=== PATIENT | male | born 1955 | race Two or more races ===

== ENCOUNTER 2016-07-19 07:36 | Emergency (ER) | payer MEDICAID ==
[~2016-07-19] VITALS: Ht 175.3 cm; Wt 113.4 kg
[2016-07-19 07:52] VITALS: BP 166/103
[2016-07-19] MEDS ORDERED: HYDROcodone-ACET 10/325MG TAB PO ONE (09:15)
[2016-07-19] MEDS ORDERED: LIDOCAINE 2%HCL (LOCAL ANESTH.) INJ 20ML MDV ONE ×2 (09:32→11:22)
[2016-07-19] MEDS ORDERED: cefTRIAXone SOD 1,000 MG VL IM ONE (10:15)
[2016-07-19] MEDS ORDERED: TETANUS-DIPTH-ACEL PERTUSSIS 0.5ML SYRG IM ONE (10:15)
[2016-07-19] MEDS ORDERED: NEOMYCIN-BACITRACIN-POLYM UNITDOSE PKG TOP OINT TOP ONE (10:28)
[2016-07-19] MEDS ORDERED: HYDROmorphone HCL 2 MG/ML VL ONE ×2 (11:10→14:52)
[2016-07-19] MEDS ORDERED: PROMETHAZINE HCL 25 MG/ML 1ML ONE (11:10)
[2016-07-19] MEDS ORDERED: ONDANSETRON HCL 4 MG/2 ML VIAL ONE (14:52)
== END 2016-07-19 10:47 | disposition home or self-care (01) ==
LOC: ER 07:36
DX: S60.552A Superficial foreign body of left hand, initial encounter (principal); W45.8XXA Other foreign body or object entering through skin, initial encounter; Y93.89 Activity, other specified; Y99.8 Other external cause status; Y92.89 Other specified places as the place of occurrence of the external cause
CPT/HCPCS: 10120; 73120; 73130; 90471; 90715; 96372; 99284; J0696; J1170; J2405; J2550; J7040

== ENCOUNTER 2018-02-18 15:07 | Emergency (ER) | payer MEDICAID ==
[~2018-02-18] VITALS: Ht 177.8 cm; Wt 113.4 kg
[2018-02-18 15:14] VITALS: BP 129/83
[2018-02-18] MEDS ORDERED: SODIUM CHLORIDE 0.9% 1,000 ML IV ONE (15:14)
[2018-02-18] MEDS ORDERED: TETANUS-DIPTH-ACEL PERTUSSIS 0.5ML SYRG IM ONE (15:30)
== END 2018-02-18 16:26 | disposition home or self-care (01) ==
LOC: EDBD 15:07 → ER 15:15
DX: S01.01XA Laceration without foreign body of scalp, initial encounter (principal); S06.9X9A Unspecified intracranial injury with loss of consciousness of unspecified duration, initial encounter; F10.129 Alcohol abuse with intoxication, unspecified; I10 Essential (primary) hypertension; I25.2 Old myocardial infarction; Z86.73 Personal history of transient ischemic attack (TIA), and cerebral infarction without residual deficits; Z98.61 Coronary angioplasty status; Y08.89XA Assault by other specified means, initial encounter; W18.39XA Other fall on same level, initial encounter; Y93.89 Activity, other specified; Y99.8 Other external cause status; Y92.89 Other specified places as the place of occurrence of the external cause
CPT/HCPCS: 12002; 36415; 70450; 72125; 80320; 90471; 90715; 94761

== ENCOUNTER → 2018-12-17 | Emergency (ER) | payer MEDICAID ==
[~2018-12-17] VITALS: Ht 175.3 cm; Wt 118.8 kg
== END | disposition home or self-care (01) ==
LOC: ER 09:08
DX: S39.011A Strain of muscle, fascia and tendon of abdomen, initial encounter (principal); K40.90 Unilateral inguinal hernia, without obstruction or gangrene, not specified as recurrent; I25.10 Atherosclerotic heart disease of native coronary artery without angina pectoris; I10 Essential (primary) hypertension; Z86.73 Personal history of transient ischemic attack (TIA), and cerebral infarction without residual deficits; X58.XXXA Exposure to other specified factors, initial encounter; Y93.89 Activity, other specified; Y92.89 Other specified places as the place of occurrence of the external cause; Y99.8 Other external cause status
CPT/HCPCS: 74176

== ENCOUNTER 2019-11-07 21:34 | Inpatient (IN) | payer MEDICAID, OTHER ==
[~2019-11-07] VITALS: Ht 175.3 cm; Wt 128.9 kg
[2019-11-07 21:59] LABS: Basophils # (auto) 0.1 10 ^3/uL (0-0.2); Basophils % (auto) 0.6 % (0.0-2.0); Eosinophils # (auto) 0.1 10 ^3/uL (0-0.8); Eosinophils % (auto) 0.3 % (0.0-7.0); Hematocrit 44.6 % (41.0-53.0); Hemoglobin 15.1 g/dL (13.5-17.5); Lymphocytes # (auto) 1.4 10 ^3/uL (0.4-5.4); Lymphocytes % (auto) 8.9 % (10.0-50.0); Mean Corpuscular Hemoglobin 32.6 pg (28.0-32.0); Mean Corpuscular Hgb Conc. 33.8 g/dL (32.0-36.0); Mean Corpuscular Volume 96.6 fL (80.0-100.0); Monocytes # (auto) 0.5 10 ^3/uL (0-1.3); Monocytes % (auto) 3.3 % (0.0-12.0); Neutrophils # (auto) 14.1 10 ^3/uL (1.6-8.6); Neutrophils % (auto) 86.9 % (37.0-80.0); Platelet Count (auto) 154 10^3/uL (140-450); Red Blood Cells 4.62 10^6/uL (4.5-5.90); Red Cell Distribution Width 14.2 % (11.8-14.3); White Blood Cell 16.2 10^3/uL (4.4-10.8)
[2019-11-07 22:10] LABS: INR 1.06 (0.9-1.15); Partial Thromboplastin Time 22.5 sec (23.0-31.2)
[2019-11-07 22:14] LABS: Alanine Aminotransferase 50 U/L (16-61); Albumin 3.6 g/dL (3.4-5.0); Anion Gap 9 (5-15); BUN/Creatinine Ratio 9.5; Blood Urea Nitrogen 9 mg/dL (7-18); Carbon Dioxide 25 mmol/L (21-32); Chloride 105 mmol/L (98-107); GFR African American 103 mL/min; GFR Non-African American 85 mL/min; Glucose 132 mg/dL (74-106); Potassium 3.7 mmol/L (3.5-5.1); Sodium 139 mmol/L (136-145)
[2019-11-07] MEDS ORDERED: VANCOMYCIN 1GM/250ML 250 ML IV ONE (22:15)
[2019-11-07] MEDS ORDERED: PIPERACILLIN-TAZOB 3.375GM 100 ML IV ONE (22:15)
[2019-11-07 22:19] LABS: Alkaline Phosphatase 188 U/L (45-117); Aspartate Aminotransferase 57 U/L (15-37); Bilirubin, Total 0.6 mg/dL (0.2-1.0)
[2019-11-07] MEDS ORDERED: SODIUM CHLORIDE 0.9% 2,700 ML IV ONE (22:30)
[2019-11-07 22:48] LABS: Lactic Acid w/Reflex 2.3 mmol/L (0.4-2.0)
[2019-11-08 00:14] LABS: Urine Bacteria NONE SEEN /hpf (None Seen); Urine Blood Negative /uL (Negative); Urine Specific Gravity 1.018 (1.001-1.035); Urine WBC 88 /hpf (0 - 3)
[2019-11-08] MEDS ORDERED: ACETAMINOPHEN 325 MG TAB PO ONE (01:45)
[2019-11-08 03:20] LABS: Lactic Acid w/Reflex 2.8 mmol/L (0.4-2.0)
[2019-11-08] MEDS ORDERED: ONDANSETRON HCL 4 MG/2 ML VIAL IV PRN (04:30)
[2019-11-08] MEDS ORDERED: ACETAMINOPHEN 325 MG TAB PO PRN (04:30)
--- NOTE | 2019-11-08 06:05 | NUR ---
Telemetry admit from SAURABH RAMACHANDRAN SR,EDWARD admitted to Telemetry unit after SBAR received. Patient oriented to ALIDA MARTINEZ RN primary RN, unit, room, bed, and unit policies regarding patient care and visiting hours. Patient now on continuous telemetry monitoring, tele box # 6 and telemetry reading on arrival to unit is Sinus Tach at 108BPM. Patient placed on bedside oxygen, weighed by bedscale and encouraged to call if they need something. All questions and concerns addressed, patient verbalized understanding.
[2019-11-08] MEDS: SODIUM CHLORIDE 0.9% 1,000 ML IV ONE ×2 (06:14→09:43)
[2019-11-08 06:31] VITALS: BP 127/78
[2019-11-08 07:17] LABS: Basophils # (auto) 0 10 ^3/uL (0-0.2); Basophils % (auto) 0.1 % (0.0-2.0); Eosinophils # (auto) 0 10 ^3/uL (0-0.8); Hematocrit 40.6 % (41.0-53.0); Hemoglobin 13.5 g/dL (13.5-17.5); Lymphocytes # (auto) 1.4 10 ^3/uL (0.4-5.4); Mean Corpuscular Hemoglobin 32.5 pg (28.0-32.0); Mean Corpuscular Hgb Conc. 33.3 g/dL (32.0-36.0); Mean Corpuscular Volume 97.7 fL (80.0-100.0); Monocytes # (auto) 2.6 10 ^3/uL (0-1.3); Monocytes % (auto) 9.2 % (0.0-12.0); Neutrophils # (auto) 24.2 10 ^3/uL (1.6-8.6); Neutrophils % (auto) 85.7 % (37.0-80.0); Platelet Count (auto) 124 10^3/uL (140-450); Red Blood Cells 4.15 10^6/uL (4.5-5.90); Red Cell Distribution Width 14.6 % (11.8-14.3); White Blood Cell 28.3 10^3/uL (4.4-10.8)
[2019-11-08 07:44] LABS: Albumin 3.2 g/dL (3.4-5.0); Potassium 3.9 mmol/L (3.5-5.1)
[2019-11-08 07:47] LABS: BUN/Creatinine Ratio 8.5; Bilirubin, Total 1.9 mg/dL (0.2-1.0); Phosphorus 2.3 mg/dL (2.5-4.90); Total Protein 6.7 g/dL (6.4-8.2)
[2019-11-08 09:00] VITALS: BP 138/71
[2019-11-08] MEDS: ENOXAPARIN SOD 40 MG/0.4 ML SYRINGE SC SCH (09:43)
[2019-11-08] MEDS ORDERED: cefTRIAXone 1GM/50ML D5W 50 ML IV SCH (10:00)
[2019-11-08] MEDS ORDERED: HYDROcodone-ACET 10/325MG TAB PO PRN (10:45)
[2019-11-08] MEDS ORDERED: DEXTROSE (50%) 50ML SYRG IV PRN (10:45)
[2019-11-08] MEDS ORDERED: IPRATROPIUM BROM 0.5 MG/2.5ML INH SOL NEB PRN (10:45)
[2019-11-08] MEDS ORDERED: ALBUTEROL SULF 2.5 MG/0.5ML(0.5%) NEB SOLN NEB PRN (10:45)
[2019-11-08] MEDS ORDERED: LISI-648 PO (10:55)
[2019-11-08] MEDS ORDERED: METF-869 PO (10:55)
[2019-11-08] MEDS ORDERED: ASPI-231 (10:55)
[2019-11-08] MEDS ORDERED: HYDR-4798 (10:55)
[2019-11-08] MEDS ORDERED: ATOR20TA50 PO (10:55)
[2019-11-08] MEDS ORDERED: CARV6.2551 PO (10:55)
[2019-11-08] MEDS ORDERED: ISO60SRT PO (10:55)
[2019-11-08] MEDS ORDERED: OMEP-260 PO (10:55)
[2019-11-08] MEDS ORDERED: MELO1TAB56 PO (10:55)
[2019-11-08] MEDS ORDERED: ALBU108A5 INH (10:55)
[2019-11-08] MEDS: SODIUM CHLORIDE 0.9% 1,000 ML IV SCH ×2 (11:14→18:20)
[2019-11-08] MEDS: ACCU-CHEK COMFORT CURVE STRIP VI SCH ×3 (11:14→22:04)
[2019-11-08] MEDS: InsuLIN REG 1unit/0.01ml Soln (100units/ml) SC SCH ×3 (11:14→22:00)
[2019-11-08] MEDS ORDERED: ISOSORBIDE MONONITRATE ER 60 MG TAB PO ONE (11:30)
[2019-11-08] MEDS ORDERED: LISINOPRIL 10 MG TAB PO ONE (11:30)
[2019-11-08 13:00] VITALS: BP 140/72
--- NOTE | 2019-11-08 13:16 | NUR ---
Transfer to MS/Tele Patient transferred to MS/Tele at this time. MADIE MURILLO,JASON admitted to Telemetry unit after report, MARY Worrell, received. Patient oriented to VALERIA SKY RN primary RN, unit, room, bed, and unit policies regarding patient care and visiting hours. Patient now on continuous telemetry monitoring, tele box #[id number]. Patient placed on bedside oxygen, weighed by bedscale and encouraged to call if they need something. All questions and concerns addressed, patient verbalized understanding.
--- NOTE | 2019-11-08 15:47 | NUR ---
Call to Dr. Mcdaniels Patient has nausea, increasing pain in the abdomen and increased axillary temp of 100.4. Performed cooling measures and called to notify doctor.
[2019-11-08 15:52] VITALS: BP 140/72
[2019-11-08] MEDS ORDERED: VANCOMYCIN PER PHARMACY 0 MG IV SCH (16:00)
--- NOTE | 2019-11-08 16:00 | NUR ---
Call from Arslan Mcdaniels notified of patients temp and pain, new orders received.
[2019-11-08] MEDS: ACETAMINOPHEN 325 MG TAB PO PRN (16:11)
--- NOTE | 2019-11-08 16:25 | NUR ---
CT Scan Patient taken to CT scan at this time.
[2019-11-08] MEDS ORDERED: VANCOMYCIN 1GM/250ML 250 ML IV ONE (16:30)
[2019-11-08 17:00] VITALS: BP 115/66
[2019-11-08] MEDS: MEROPENEM 1GM IVPB 100 ML IV SCH (18:07)
--- NOTE | 2019-11-08 19:16 | NUR ---
Closing Shift Note Patient resting in bed. No distress noted. Report given. Will endorse care to the beef grader RN.
[2019-11-08 22:00] VITALS: BP 103/60
[2019-11-08] MEDS: CARVEDILOL 3.125 MG TAB PO SCH (22:03)
[2019-11-08] MEDS: ATORVASTATIN 20 MG TAB PO SCH (22:04)
[2019-11-09] MEDS: VANCOMYCIN 1GM/250ML 250 ML IV SCH ×4 (00:16→21:04)
[2019-11-09] MEDS: MEROPENEM 1GM IVPB 100 ML IV SCH ×3 (01:39→18:34)
[2019-11-09 04:48] VITALS: BP 95/54
[2019-11-09] MEDS: SODIUM CHLORIDE 0.9% 1,000 ML IV SCH ×3 (05:44→18:43)
[2019-11-09] MEDS: InsuLIN REG 1unit/0.01ml Soln (100units/ml) SC SCH ×4 (06:05→21:51)
[2019-11-09] MEDS: ACCU-CHEK COMFORT CURVE STRIP VI SCH ×4 (06:06→21:52)
[2019-11-09 06:42] LABS: Basophils # (auto) 0.1 10 ^3/uL (0-0.2); Basophils % (auto) 0.4 % (0.0-2.0); Eosinophils # (auto) 0.1 10 ^3/uL (0-0.8); Eosinophils % (auto) 0.6 % (0.0-7.0); Hematocrit 36.7 % (41.0-53.0); Lymphocytes # (auto) 1.3 10 ^3/uL (0.4-5.4); Lymphocytes % (auto) 8.6 % (10.0-50.0); Mean Corpuscular Hemoglobin 32.6 pg (28.0-32.0); Mean Corpuscular Hgb Conc. 32.7 g/dL (32.0-36.0); Mean Corpuscular Volume 99.5 fL (80.0-100.0); Monocytes # (auto) 1.5 10 ^3/uL (0-1.3); Monocytes % (auto) 10.1 % (0.0-12.0); Neutrophils % (auto) 80.3 % (37.0-80.0); Nucleated Red Blood Cells % 0.1 %; Platelet Count (auto) 105 10^3/uL (140-450); Red Blood Cells 3.69 10^6/uL (4.5-5.90); Red Cell Distribution Width 14.5 % (11.8-14.3); White Blood Cell 14.9 10^3/uL (4.4-10.8)
[2019-11-09 06:58] LABS: Albumin 2.9 g/dL (3.4-5.0); Calcium 8.1 mg/dL (8.5-10.1); Potassium 3.9 mmol/L (3.5-5.1)
[2019-11-09 07:02] LABS: BUN/Creatinine Ratio 14.4; Bilirubin, Total 1.5 mg/dL (0.2-1.0); Total Protein 6.3 g/dL (6.4-8.2)
--- NOTE | 2019-11-09 07:10 | NUR ---
closing note pt resting in semi fowlers with HOB at 30 degrees. respiration even and nonlabored on 5Lnc. no s/s of pain or distress. endorsed care to day shift MARY Riley.
--- NOTE | 2019-11-09 07:30 | NUR ---
Opening Shift Note Assumed care of patient, awake and alert. Respirations are even and non labored. Patient stated "I don't want to wear this oxygen anymore." Oxygen saturation was sufficient for room air, patient education given about shortness of breath and how to apply nasal cannula if needed. No S/S of distress/SOB or pain. Bed is in lowest and locked position with side rails up x 2 and call light within reach. Instructed on POC and to call for assist PRN, will continue to monitor for changes Q1hr and PRN.
--- NOTE | 2019-11-09 07:30 | NUR ---
Respiratory note: ASSESSED PT FOR PRN MEDNEB TX. HR 85, RR 18, SPO2 93% ON ROOM AIR. BREATH SOUNDS CLEAR/DIM T/O. PT DENIES SOB, NO S/S OF DISTRESS NOTED. MEDNEB TX NOT INDICATED AT THIS TIME. PT AWARE TO CALL FOR RT IF NEEDED.
[2019-11-09 08:48] VITALS: BP 113/69
--- NOTE | 2019-11-09 09:00 | NUR ---
IV insertion IV access obtained, via clean sterile technique by inserting 22 gauge catheter at right AC. IV secured properly. No trauma to site. Patient tolerated well.
--- NOTE | 2019-11-09 09:43 | NUR ---
Call to Micro Received in report that the patient was positive for gram positive cocci in clusters. Micro status wasn't reflecting accordingly. Called micro for confirmation.
[2019-11-09] MEDS ORDERED: ISOSORBIDE MONONITRATE ER 60 MG TAB PO SCH (10:00)
[2019-11-09] MEDS ORDERED: LISINOPRIL 10 MG TAB PO SCH (10:00)
[2019-11-09] MEDS ORDERED: ASPirin 81 mg TAB PO SCH (10:00)
[2019-11-09] MEDS: ENOXAPARIN SOD 40 MG/0.4 ML SYRINGE SC SCH (10:00)
--- NOTE | 2019-11-09 10:02 | NUR ---
Call to Dr. Jiang Called to notify of micro report. Left message for further instruction.
[2019-11-09] MEDS: CARVEDILOL 3.125 MG TAB PO SCH ×2 (11:07→21:51)
[2019-11-09 13:00] VITALS: BP 116/58
--- NOTE | 2019-11-09 13:26 | NUR ---
Call to Pharmacy Call to pharmacy at this time, spoke with pharmacist. Pharmacists called earlier but no changes were made to vancomycin schedule of trough. Pharmacists aware that patient did not have IV access until 0900. Pharmacists states they are aware and no changes will be made. Will administer antibiotics as scheduled.
[2019-11-09 16:20] VITALS: BP 96/52
[2019-11-09] MEDS: ACETAMINOPHEN 325 MG TAB PO PRN (18:42)
--- NOTE | 2019-11-09 18:43 | NUR ---
Pain reported Patient reported 6/10 pain. Patient requested acetaminophen, medicated per request.
--- NOTE | 2019-11-09 19:45 | NUR ---
ASSUMED CARE, PT. AWAKE, NO C/O PAIN, NO SOB.
--- NOTE | 2019-11-09 20:00 | NUR ---
PT ASSESSED, PRN TX NOT INDICATED
[2019-11-09] MEDS: ATORVASTATIN 20 MG TAB PO SCH (21:51)
[2019-11-09 22:00] VITALS: BP 113/63
--- NOTE | 2019-11-10 00:30 | NUR ---
called up. ct, they will do ct at 0800, npo instructed to pt.
[2019-11-10] MEDS: MEROPENEM 1GM IVPB 100 ML IV SCH (01:43)
[2019-11-10] MEDS: SODIUM CHLORIDE 0.9% 1,000 ML IV SCH (02:45)
[2019-11-10] MEDS: VANCOMYCIN 1GM/250ML 250 ML IV SCH (03:48)
[2019-11-10 05:00] VITALS: BP 128/79
[2019-11-10] MEDS: InsuLIN REG 1unit/0.01ml Soln (100units/ml) SC SCH (06:13)
[2019-11-10] MEDS: ACCU-CHEK COMFORT CURVE STRIP VI SCH (06:14)
[2019-11-10 07:19] LABS: Albumin 2.8 g/dL (3.4-5.0); Calcium 8.4 mg/dL (8.5-10.1); Potassium 3.7 mmol/L (3.5-5.1)
[2019-11-10 07:23] LABS: BUN/Creatinine Ratio 16.2; Total Protein 6.4 g/dL (6.4-8.2)
[2019-11-10 07:35] LABS: Basophils # (auto) 0.1 10 ^3/uL (0-0.2); Basophils % (auto) 0.9 % (0.0-2.0); Eosinophils # (auto) 0.1 10 ^3/uL (0-0.8); Eosinophils % (auto) 1.2 % (0.0-7.0); Hematocrit 38.1 % (41.0-53.0); Hemoglobin 12.7 g/dL (13.5-17.5); Lymphocytes # (auto) 0.7 10 ^3/uL (0.4-5.4); Lymphocytes % (auto) 9.6 % (10.0-50.0); Mean Corpuscular Hgb Conc. 33.4 g/dL (32.0-36.0); Mean Corpuscular Volume 98.8 fL (80.0-100.0); Monocytes # (auto) 0.7 10 ^3/uL (0-1.3); Monocytes % (auto) 9.5 % (0.0-12.0); Neutrophils # (auto) 5.7 10 ^3/uL (1.6-8.6); Neutrophils % (auto) 78.8 % (37.0-80.0); Platelet Count (auto) 99 10^3/uL (140-450); Red Blood Cells 3.86 10^6/uL (4.5-5.90); Red Cell Distribution Width 14.3 % (11.8-14.3); White Blood Cell 7.2 10^3/uL (4.4-10.8)
[2019-11-10 08:30] VITALS: BP 142/79
--- NOTE | 2019-11-10 08:30 | NUR ---
Patient resting comfortably in bed. States he wants to leave AMA because he doesn't know what's going on. Explained to patient that CT angio is scheduled for today; possible discharge pending result of test. Also stressed the importance of antibiotic therapy.
[2019-11-10 09:00] VITALS: BP 142/79
--- NOTE | 2019-11-10 09:00 | NUR ---
Assessment Regarding social service consult for alcohol abuse. Patient refused resources. Patient is a 64-year-old male who is alert and oriented. Prior to admission patient lived home alone and functioned independently. Patient has no needs for DME at this time. Patient states he can care for his own ADL's. Patient verbalize understanding d/c day.
--- NOTE | 2019-11-10 10:10 | NUR ---
Paged Dr. Mcdaniels and left message that patient states he will wait until 11 am to have the [address] angio done.
--- NOTE | 2019-11-10 10:35 | NUR ---
Patient left AMA. Peripheral IV removed intact with no active bleeding; site covered with gauze. Patient states that he will follow-up with his primary physician. Reiterated the importance of continuing antibiotic therapy to fight infection. Patient verbalized understanding.
== END 2019-11-10 10:35 | disposition left against medical advice (07) | DRG 720 ==
LOC: EDBD 21:34 → ER 21:37 → EDUNIT# 21:37 → TELE 21:38 → TELE-EAST 11-08 06:32 → TELE-CENTR 11-08 13:28
PROVIDERS: ADMIT Internal Medicine; ATTEND Internal Medicine
DX: A41.9 Sepsis, unspecified organism (principal); E66.01 Morbid (severe) obesity due to excess calories; I11.0 Hypertensive heart disease with heart failure; I50.9 Heart failure, unspecified; K70.30 Alcoholic cirrhosis of liver without ascites; Z20.828 Contact with and (suspected) exposure to other viral communicable diseases; M25.462 Effusion, left knee; M25.461 Effusion, right knee; N39.0 Urinary tract infection, site not specified; M17.0 Bilateral primary osteoarthritis of knee; F41.9 Anxiety disorder, unspecified; J44.9 Chronic obstructive pulmonary disease, unspecified; E78.5 Hyperlipidemia, unspecified; E11.9 Type 2 diabetes mellitus without complications; Z53.29 Procedure and treatment not carried out because of patient's decision for other reasons; F10.10 Alcohol abuse, uncomplicated; Z87.11 Personal history of peptic ulcer disease; Z68.41 Body mass index [BMI] 40.0-44.9, adult; Z87.891 Personal history of nicotine dependence
CPT/HCPCS: 36415; 36600; 71045; 73560; 73700; 74176; 80053; 80202; 81001; 82805; 82962; 83605; 83735; 83880; 84100; 84484; 85025; 85379; 85610; 85730; 86850; 86900; 86901; 87040; 87077; 87086; 87088; 87186; 87426; 93005; 93970; 96365; 96366; 96367; 99291; G0378; J0696; J2185; J2405; J2543

== ENCOUNTER 2020-06-14 20:28 | Emergency (ER) | payer MEDICAID ==
[~2020-06-14] VITALS: Ht 180.3 cm; Wt 113.4 kg
[~2020-06-14 20:28] MED LIST: ALBU108A5 INH; ASPI1TAB20; ATOR20TA50 PO; CARV6.2551 PO; HYDR-4798; ISO60SRT PO; LISI-716 PO; MELO1TAB56 PO; METF-869 PO; OMEP-260 PO
[2020-06-14 21:56] LABS: Basophils # (auto) 0 10 ^3/uL (0-0.2); Basophils % (auto) 0.4 % (0.0-2.0); Eosinophils # (auto) 0.1 10 ^3/uL (0-0.8); Eosinophils % (auto) 0.4 % (0.0-7.0); Hemoglobin 15.8 g/dL (13.5-17.5); Lymphocytes # (auto) 1.7 10 ^3/uL (0.4-5.4); Lymphocytes % (auto) 14.9 % (10.0-50.0); Mean Corpuscular Hemoglobin 33.1 pg (28.0-32.0); Mean Corpuscular Hgb Conc. 34.4 g/dL (32.0-36.0); Mean Corpuscular Volume 96.3 fL (80.0-100.0); Monocytes # (auto) 1.1 10 ^3/uL (0-1.3); Monocytes % (auto) 9.6 % (0.0-12.0); Neutrophils # (auto) 8.6 10 ^3/uL (1.6-8.6); Neutrophils % (auto) 74.7 % (37.0-80.0); Nucleated Red Blood Cells % 0.2 %; Red Blood Cells 4.77 10^6/uL (4.5-5.90); Red Cell Distribution Width 15.6 % (11.8-14.3); White Blood Cell 11.6 10^3/uL (4.4-10.8)
[2020-06-14 22:13] LABS: Albumin 3.3 g/dL (3.4-5.0); Anion Gap 9 (5-15); Calcium 8.3 mg/dL (8.5-10.1); Carbon Dioxide 21 mmol/L (21-32); Chloride 110 mmol/L (98-107); Glucose 269 mg/dL (74-106); Magnesium 2.8 mg/dL (1.6-2.6); Potassium 4.4 mmol/L (3.5-5.1); Sodium 140 mmol/L (136-145)
[2020-06-14 22:19] LABS: Alkaline Phosphatase 237 U/L (45-117); Aspartate Aminotransferase 58 U/L (15-37); Bilirubin, Total 0.7 mg/dL (0.2-1.0); GFR African American 109 mL/min; GFR Non-African American 90 mL/min; Total Protein 7.1 g/dL (6.4-8.2)
[2020-06-14 23:04] LABS: Alanine Aminotransferase 96 U/L (16-61)
[2020-06-14 23:06] LABS: Blood Urea Nitrogen 18 mg/dL (7-18)
[2020-06-15] VITALS: BP 156/60
[2020-06-15] MEDS ORDERED: IOHEXOL 350 MG/ML 100ML IJ ONE (00:12)
== END 2020-06-15 00:51 | disposition left against medical advice (07) ==
LOC: EDBD 20:28 → ER 20:31
DX: R07.89 Other chest pain (principal); R55 Syncope and collapse; I10 Essential (primary) hypertension; E11.9 Type 2 diabetes mellitus without complications; E78.5 Hyperlipidemia, unspecified; J45.909 Unspecified asthma, uncomplicated; I25.2 Old myocardial infarction; F41.9 Anxiety disorder, unspecified; I25.10 Atherosclerotic heart disease of native coronary artery without angina pectoris; Z79.84 Long term (current) use of oral hypoglycemic drugs; Z79.82 Long term (current) use of aspirin; Z79.899 Other long term (current) drug therapy; Z87.440 Personal history of urinary (tract) infections; Z87.11 Personal history of peptic ulcer disease; Z98.890 Other specified postprocedural states; Z87.891 Personal history of nicotine dependence; Z20.822 Contact with and (suspected) exposure to COVID-19
CPT/HCPCS: 36415; 71045; 80053; 83735; 83880; 84484; 85025; 85610; 87426; 93005; 99285; Q9967

== ENCOUNTER → 2021-02-16 | Outpatient (CLI) | payer MEDICAID, OTHER ==
[2021-02-16 11:09] LABS: Basophils # (auto) 0.1 10 ^3/uL (0-0.2); Basophils % (auto) 0.8 % (0.0-2.0); Eosinophils # (auto) 0.1 10 ^3/uL (0-0.8); Eosinophils % (auto) 2.1 % (0.0-7.0); Hematocrit 41.7 % (41.0-53.0); Hemoglobin 13.9 g/dL (13.5-17.5); Lymphocytes # (auto) 1.6 10 ^3/uL (0.4-5.4); Lymphocytes % (auto) 23.7 % (10.0-50.0); Mean Corpuscular Hgb Conc. 33.3 g/dL (32.0-36.0); Mean Corpuscular Volume 90.1 fL (80.0-100.0); Monocytes # (auto) 0.7 10 ^3/uL (0-1.3); Monocytes % (auto) 10.6 % (0.0-12.0); Neutrophils # (auto) 4.3 10 ^3/uL (1.6-8.6); Neutrophils % (auto) 62.8 % (37.0-80.0); Nucleated Red Blood Cells % 0.1 %; Red Blood Cells 4.63 10^6/uL (4.5-5.90); Red Cell Distribution Width 16.2 % (11.8-14.3); White Blood Cell 6.8 10^3/uL (4.4-10.8)
[2021-02-16 11:34] LABS: Urine Bacteria NONE SEEN /hpf (None Seen); Urine Blood Negative /uL (Negative); Urine Mucus FEW (None Seen); Urine Specific Gravity 1.029 (1.001-1.035); Urine WBC 1 /hpf (0 - 3)
[2021-02-16 12:01] LABS: Albumin 3.3 g/dL (3.4-5.0); Calcium 9.1 mg/dL (8.5-10.1); Potassium 4.6 mmol/L (3.5-5.1)
[2021-02-16 12:06] LABS: Bilirubin, Total 1.2 mg/dL (0.2-1.0); Total Protein 7.6 g/dL (6.4-8.2)
[2021-02-17 06:37] LABS: Uric Acid 5.6 mg/dL (3.5-7.2)
== END | disposition home or self-care (01) ==
LOC: LAB 10:38
PROVIDERS: ATTEND Internal Medicine
DX: Z00.00 Encounter for general adult medical examination without abnormal findings (principal); E11.9 Type 2 diabetes mellitus without complications; Z12.11 Encounter for screening for malignant neoplasm of colon; E78.5 Hyperlipidemia, unspecified; D64.9 Anemia, unspecified
CPT/HCPCS: 36415; 80053; 80061; 81001; 82043; 82550; 83036; 84153; 84443; 84550; 85025; 85652; 86431

== ENCOUNTER 2021-08-19 00:12 | Inpatient (IN) | payer OTHER, MEDICAID ==
[~2021-08-19] VITALS: Ht 175.3 cm; Wt 129.0 kg
[2021-08-19 02:06] LABS: Basophils # (auto) 0.1 10 ^3/uL (0-0.2); Basophils % (auto) 0.9 % (0.0-2.0); Eosinophils # (auto) 0.2 10 ^3/uL (0-0.8); Eosinophils % (auto) 3.2 % (0.0-7.0); Hematocrit 45.3 % (41.0-53.0); Hemoglobin 15.3 g/dL (13.5-17.5); Lymphocytes # (auto) 2.5 10 ^3/uL (0.4-5.4); Lymphocytes % (auto) 36.1 % (10.0-50.0); Mean Corpuscular Hemoglobin 32.4 pg (28.0-32.0); Mean Corpuscular Hgb Conc. 33.9 g/dL (32.0-36.0); Mean Corpuscular Volume 95.7 fL (80.0-100.0); Monocytes # (auto) 0.8 10 ^3/uL (0-1.3); Neutrophils # (auto) 3.4 10 ^3/uL (1.6-8.6); Neutrophils % (auto) 48.8 % (37.0-80.0); Nucleated Red Blood Cells % 0.1 %; Red Blood Cells 4.73 10^6/uL (4.5-5.90); Red Cell Distribution Width 14.3 % (11.8-14.3); White Blood Cell 6.9 10^3/uL (4.4-10.8)
[2021-08-19 02:25] LABS: Albumin 3.5 g/dL (3.4-5.0); BUN/Creatinine Ratio 12.7; Calcium 8.8 mg/dL (8.5-10.1); Potassium 4.2 mmol/L (3.5-5.1)
[2021-08-19 02:27] LABS: Bilirubin, Total 0.4 mg/dL (0.2-1.0); Total Protein 7.4 g/dL (6.4-8.2)
[2021-08-19] MEDS ORDERED: HYDROcodone-ACET 5/325MG TAB PO PRN (06:30)
[2021-08-19] MEDS ORDERED: DOCUSATE SOD 100 MG CAP PO PRN (06:30)
[2021-08-19] MEDS ORDERED: SODIUM CHLORIDE 0.9% 1,000 ML IV SCH (06:30)
[2021-08-19] MEDS ORDERED: ONDANSETRON HCL 4 MG/2 ML VIAL IV PRN (06:30)
[2021-08-19] MEDS ORDERED: DEXTROSE (50%) 50ML SYRG IV PRN (06:30)
[2021-08-19] MEDS ORDERED: ACETAMINOPHEN 325 MG TAB PO PRN (06:30)
[2021-08-19] MEDS ORDERED: NITROGLYCERIN 0.4 MG SL TAB SL PRN (06:45)
[2021-08-19] MEDS ORDERED: MORPHINE SULFATE INJ 2 MG/ml SYRG IV PRN (06:45)
[2021-08-19] MEDS: InsuLIN REG 1unit/0.01ml Soln (100units/ml) SC SCH ×2 (07:00→11:30)
[2021-08-19] MEDS: ACCU-CHEK COMFORT CURVE STRIP VI SCH ×2 (07:02→11:55)
[2021-08-19 07:15] LABS: Basophils # (auto) 0.1 10 ^3/uL (0-0.2); Basophils % (auto) 1.2 % (0.0-2.0); Eosinophils # (auto) 0.2 10 ^3/uL (0-0.8); Eosinophils % (auto) 3.9 % (0.0-7.0); Hematocrit 46.5 % (41.0-53.0); Hemoglobin 15.3 g/dL (13.5-17.5); Lymphocytes % (auto) 38.7 % (10.0-50.0); Mean Corpuscular Hemoglobin 31.6 pg (28.0-32.0); Mean Corpuscular Hgb Conc. 32.9 g/dL (32.0-36.0); Monocytes # (auto) 0.5 10 ^3/uL (0-1.3); Monocytes % (auto) 9.8 % (0.0-12.0); Neutrophils # (auto) 2.4 10 ^3/uL (1.6-8.6); Neutrophils % (auto) 46.4 % (37.0-80.0); Nucleated Red Blood Cells % 0.1 %; Red Blood Cells 4.84 10^6/uL (4.5-5.90); Red Cell Distribution Width 14.5 % (11.8-14.3); White Blood Cell 5.1 10^3/uL (4.4-10.8)
[2021-08-19 07:37] LABS: Albumin 3.5 g/dL (3.4-5.0); Calcium 8.9 mg/dL (8.5-10.1); Potassium 4.7 mmol/L (3.5-5.1)
[2021-08-19 07:39] LABS: BUN/Creatinine Ratio 12.5
[2021-08-19 07:42] LABS: Bilirubin, Total 0.5 mg/dL (0.2-1.0); Total Protein 7.3 g/dL (6.4-8.2)
[2021-08-19] MEDS ORDERED: ASPirin 81 mg TAB PO SCH (10:00)
[2021-08-19] MEDS ORDERED: FAMOTIDINE (10MG/ML) 2ML VL IV SCH (10:00)
[2021-08-19] MEDS ORDERED: SUCRALFATE 1 GM TAB PO SCH (12:15)
[2021-08-19] MEDS ORDERED: ALUM & MAG HYDROX-SIMETH LIQ(MAALOX) 30 ML PO ONE (12:15)
[2021-08-19] MEDS ORDERED: ALUM & MAG HYDROX-SIMETH LIQ(MAALOX) 30 ML PO PRN (12:15)
[2021-08-19] MEDS ORDERED: SUCR1TAB22 OR (12:16)
[2021-08-19] MEDS ORDERED: PANT40TA2 PO (12:16)
[2021-08-19 12:59] VITALS: BP 130/69
[2021-08-19 13:00] VITALS: BP 144/78
[2021-08-19] MEDS ORDERED: ALBU2SYP3 (13:19)
[2021-08-19] MEDS ORDERED: ATORVASTATIN 20 MG TAB PO SCH (22:00)
[2021-08-19] MEDS ORDERED: InsuLIN REG 1unit/0.01ml Soln (100units/ml) SC SCH (22:00)
[2021-08-20] MEDS ORDERED: PANTOPRAZOLE 40 MG TAB PO SCH (10:00)
[2021-08-20] MEDS ORDERED: ENOXAPARIN SOD 40 MG/0.4 ML SYRINGE SC SCH (10:00)
== END 2021-08-19 14:10 | disposition left against medical advice (07) | DRG 392 ==
LOC: EDBD 00:12 → ER 00:12 → TELE 06:34 → TELE-EAST 09:07
PROVIDERS: ADMIT Nurse Practitioner Family; ATTEND Internal Medicine
DX: K21.9 Gastro-esophageal reflux disease without esophagitis (principal); Z68.41 Body mass index [BMI] 40.0-44.9, adult; E11.65 Type 2 diabetes mellitus with hyperglycemia; E66.01 Morbid (severe) obesity due to excess calories; E78.5 Hyperlipidemia, unspecified; I25.10 Atherosclerotic heart disease of native coronary artery without angina pectoris; I25.2 Old myocardial infarction; I51.7 Cardiomegaly; Z53.29 Procedure and treatment not carried out because of patient's decision for other reasons; J45.909 Unspecified asthma, uncomplicated; D64.9 Anemia, unspecified; F41.9 Anxiety disorder, unspecified; Z20.822 Contact with and (suspected) exposure to COVID-19; M19.90 Unspecified osteoarthritis, unspecified site; Z87.891 Personal history of nicotine dependence; Z82.49 Family history of ischemic heart disease and other diseases of the circulatory system; Z87.11 Personal history of peptic ulcer disease; Z95.5 Presence of coronary angioplasty implant and graft; Z85.841 Personal history of malignant neoplasm of brain
CPT/HCPCS: 36415; 71045; 80053; 82962; 83036; 84484; 85025; 93005; 96360; G0378

== ENCOUNTER 2022-03-16 10:41 | Outpatient (CLI) | payer OTHER, MEDICAID ==
[~2022-03-16] VITALS: Ht 175.3 cm; Wt 132.4 kg
[~2022-03-16 10:41] MED LIST changes: +ALBU2SYP3; -ASPI1TAB20; +ASPI1TAB20 PO; +PANT40TA2 PO; +SUCR1TAB22 OR
[2022-03-16] MEDS ORDERED: CHOL500021 OR (12:29)
[2022-03-16] MEDS ORDERED: ALBU0.084 NEB (12:29)
[2022-03-16] MEDS ORDERED: NITR0.4S29 SL (12:30)
== END 2022-03-16 11:04 | disposition home or self-care (01) ==
LOC: LAB 10:41 → EDSTATUS 03-21 08:37
PROVIDERS: ATTEND Internal Medicine Cardiovascular Disease
DX: U07.1 COVID-19 (principal)